=== PATIENT | female | born 1975 | race Hispanic/Latino ===

== ENCOUNTER 2018-05-20 15:31 | Emergency (ER) | payer SELFPAY ==
[2018-05-20 15:41] VITALS: BP 169/82
[2018-05-20] MEDS ORDERED: IBUPROFEN PO ONE (16:24)
[2018-05-20] MEDS ORDERED: NORCO 5/325 PO ONE (16:24)
[2018-05-20] MEDS ORDERED: BICILLIN L-A IM ONE (16:24)
--- NOTE | 2018-05-20 16:29 | Emergency Department Report ---
HPI - General Chief Complaint: Dental/Oral Time Seen by Provider: 05/20/18 16:22 - HPI HPI: Room 31 The patient is a 42-year-old female presenting with chief complaint of toothache. The patient complains of pain in tooth #31 for "a while." When asked to specify the length of time"a while" is, the patient just continues to repeat "a while." The patient states she has not seen a dentist recently. The patient states Advil PM helps temporarily but the pain returns. Patient denies any history of fever. Patient is a pain score of "12/10." Location: Tooth #31 Duration: "A while " Quality: Pain Severity: "03/31" Modifying factors: Advil PM, see above Context: [see above] Mode of transportation: [not driving] ED Past Medical Hx - Past Medical History Previous Medical History?: No - Surgical History Hx Cholecystectomy: Yes - Family History Family history: no significant - Social History Smoking Status: Current Every Day Smoker Substance Use Type: None - Medications Home Medications: Home Medications Medication Instructions Recorded Confirmed Last Taken Type HYDROcodone/APAP 5-325 [[place] 1 - 2 each PO Q6HR PRN #20 tablet 05/20/18 Unknown Rx 5/325] Ibuprofen [Motrin 800 MG tab] 800 mg PO Q8HR PRN #20 tablet 05/20/18 Unknown Rx ED Review of Systems ROS: Stated complaint: TOOTH PAIN/JAW Other details as noted in HPI Constitutional: denies: fever Eyes: denies: eye pain ENT: dental pain Respiratory: no symptoms reported Cardiovascular: denies: chest pain Endocrine: no symptoms reported Gastrointestinal: denies: abdominal pain Genitourinary: denies: dysuria Musculoskeletal: denies: back pain Neurological: denies: headache Physical Exam - Physical Exam Vital Signs: Vital Signs 05/20/18 15:38 Temperature 99.1 F Pulse Rate 98 H Respiratory 18 Rate Blood Pressure 169/82 O2 Sat by Pulse 99 Oximetry Physical Exam: GENERAL: The patient is well-developed well-nourished female sitting on chair not appearing to be in acute distress HEENT: Normocephalic. Atraumatic. Extraocular motions are intact. Patient has moist mucous membranes. Poor dentition. Multiple caries including tooth #31. Tooth #13 is loose NECK: Supple. Trachea midline There is no adenopathy noted. No stridor CHEST/LUNGS: Clear to auscultation. There is no respiratory distress noted. HEART/CARDIOVASCULAR: Regular. There is no tachycardia. There is no gallop rub or murmur. ABDOMEN: There is no abdominal distention. SKIN: There is no rash. There is no diaphoresis. NEURO: The patient is awake, alert, and oriented. The patient is cooperative. The patient has normal speech MUSCULOSKELETAL: There is no evidence of acute injury. ED Course Vital Signs 05/20/18 15:38 Temperature 99.1 F Pulse Rate 98 H Respiratory 18 Rate Blood Pressure 169/82 O2 Sat by Pulse 99 Oximetry ED Medical Decision Making - Differential Diagnosis toothache Critical care attestation.: If time is entered above; I have spent that time in minutes in the direct care of this critically ill patient, excluding procedure time. ED Disposition Clinical Impression: Toothache, Dental caries Disposition: - TO HOME OR SELFCARE Is pt being admited?: No Does the pt Need Aspirin: No Condition: Stable Instructions: Dental Caries (ED), Toothache (ED) Additional Instructions: Return to the emergency department immediately should you develop worsening symptoms, fever, inability to tolerate food or liquid or any other concerns. Prescriptions: HYDROcodone/APAP 5-325 [[place] 5/325] 1 - 2 each PO Q6HR PRN #20 tablet PRN Reason: Pain Ibuprofen [Motrin 800 MG tab] 800 mg PO Q8HR PRN #20 tablet PRN Reason: Pain, Moderate (4-6) Referrals: [facility] [Outside] - [place] Time of Disposition: 16:30
[2018-05-20] MEDS ORDERED: TORADOL IM ONE (16:57)
== END 2018-05-20 17:24 | disposition home or self-care (01) ==
LOC: ED 15:31
DX: K02.9 Dental caries, unspecified (principal); F17.200 Nicotine dependence, unspecified, uncomplicated; Z90.49 Acquired absence of other specified parts of digestive tract
CPT/HCPCS: 96372; 99282; J0561; J1885

== ENCOUNTER 2019-03-31 15:32 | Emergency (ER) | payer SELFPAY ==
--- NOTE | 2019-03-31 15:52 | Event Note ---
ED Screening Note Date of service: 03/31/19 Time: 15:49 ED Screening Note: 43 y o f presents with right foot pain s/p fall ambulatory with crtuches This initial assessment/diagnostic orders/clinical plan/treatment(s) is/are subject to change based on patients health status, clinical progression and re- assessment by fellow clinical providers in the ED. Further treatment and workup at subsequent clinical providers discretion. Patient/guardian urged not to elope from the ED as their condition may be serious if not clinically assessed and managed. Initial orders include: xr foot acc eval
--- NOTE | 2019-03-31 16:40 | XRay Report ---
RIGHT FOOT 2 VIEWS INDICATION / CLINICAL INFORMATION: pain. COMPARISON: None available. FINDINGS: No fracture or other skeletal abnormality. No radiopaque foreign body or obvious soft tissue mass. Signer Name: Andriy Bran MD Signed: 03/31/2019 4:36 PM Workstation Name: [id number]
--- NOTE | 2019-03-31 20:58 | Emergency Department Report ---
ED Lower Extremity HPI - General Chief Complaint: Extremity Problem,Nontraumatic Stated Complaint: RIGHT FOOT PAIN Time Seen by Provider: 03/31/19 20:45 Source: patient Mode of arrival: Ambulatory Limitations: No Limitations - History of Present Illness Initial Comments: 43 years old female with no significant past medical history. Patient presented to the ER complaining of right foot pain for the last 3 weeks. Patient denied any injury. Patient stated that pain is worse first step in the morning. Patient denied any fever. No other complaint. - Related Data Previous Rx's Medication Instructions Recorded Last Taken Type HYDROcodone/APAP 5-325 [[place] 1 - 2 each PO Q6HR PRN #20 tablet 05/20/18 Unknown Rx 5/325] Ibuprofen [Motrin 800 MG tab] 800 mg PO Q8HR PRN #20 tablet 05/20/18 Unknown Rx Allergies Allergy/AdvReac Type Severity Reaction Status Date / Time morphine Allergy Unknown Verified 03/31/19 15:37 ED Review of Systems ROS: Stated complaint: RIGHT FOOT PAIN Other details as noted in HPI Comment: All other systems reviewed and negative Constitutional: denies: chills Respiratory: denies: cough Musculoskeletal: denies: back pain Neurological: denies: headache, weakness ED Past Medical Hx - Past Medical History Previous Medical History?: No - Surgical History Past Surgical History?: Yes Hx Cholecystectomy: Yes - Social History Smoking Status: Current Some Day Smoker Substance Use Type: None - Medications Home Medications: Home Medications Medication Instructions Recorded Confirmed Last Taken Type HYDROcodone/APAP 5-325 [[place] 1 - 2 each PO Q6HR PRN #20 tablet 05/20/18 Unknown Rx 5/325] Ibuprofen [Motrin 800 MG tab] 800 mg PO Q8HR PRN #20 tablet 05/20/18 Unknown Rx ED Physical Exam - General Limitations: No Limitations General appearance: alert, in no apparent distress - Respiratory Respiratory exam: Present: normal lung sounds bilaterally - Cardiovascular Cardiovascular Exam: Present: regular rate, normal rhythm, normal heart sounds - Expanded Lower Extremity Exam Right Foot/Toe exam: Present: normal inspection, full ROM, tenderness. Absent: swelling, abrasion, laceration, ecchymosis, deformity, crepidus, dislocation, erythema, amputation, puncture wound, calcaneal tenderness Neuro vascular tendon exam: Present: no vascular compromise Gait: Positive: observed and limited by pain - Neurological Exam Neurological exam: Present: alert, oriented X3, CN II-XII intact ED Course Vital Signs 03/31/19 15:44 Temperature 97.5 F L Pulse Rate 101 H Respiratory 16 Rate Blood Pressure 135/84 O2 Sat by Pulse 99 Oximetry ED Lower Extremity MDM - Radiology Data Radiology results: report reviewed Right foot x-ray is negative for acute finding. Critical care attestation.: If time is entered above; I have spent that time in minutes in the direct care of this critically ill patient, excluding procedure time. ED Disposition Clinical Impression: Right foot pain, Plantar fasciitis of right foot Disposition: DC-01 TO HOME OR SELFCARE Is pt being admited?: No Condition: Stable Instructions: Plantar Fasciitis (ED) Referrals: PRIMARY CARE, [Primary Care Provider] - 3-5 Days
[2019-03-31 21:39] VITALS: BP 130/82
== END 2019-03-31 21:13 | disposition home or self-care (01) ==
LOC: ED 15:32
DX: M72.2 Plantar fascial fibromatosis (principal); F17.200 Nicotine dependence, unspecified, uncomplicated; Z90.49 Acquired absence of other specified parts of digestive tract; Z88.6 Allergy status to analgesic agent